=== PATIENT | female | born 1935 | race Caucasian/White ===

== ENCOUNTER 2019-05-05 12:39 | Emergency (ER) | payer OTHER ==
[~2019-05-05] VITALS: Ht 154.9 cm; Wt 68.2 kg
[~2019-05-05 12:39] MED LIST: DOCU-144 PO; LIDO20SO19 MM; POLY17PO6 PO; SENN-120 PO; SIME80TA45 PO
[2019-05-05 12:45] VITALS: Ht 154.9 cm; Wt 68.2 kg
[2019-05-05 19:15] VITALS: BP 115/67; PULSE 81; RESP 18
== END 2019-05-05 19:15 | disposition home or self-care (01) ==
LOC: E/R 12:39
DX: R10.84 Generalized abdominal pain (principal); Z87.891 Personal history of nicotine dependence
CPT/HCPCS: 74176